=== PATIENT | male | born 1995 | race Caucasian/White ===

== ENCOUNTER 2019-09-15 15:17 | Emergency (ER) | payer MEDICAID ==
[~2019-09-15] VITALS: Ht 170.2 cm; Wt 59.0 kg
[2019-09-15 15:20] VITALS: BP_SYST 126
[2019-09-15] MEDS ORDERED: MECLIZINE HCL 25 MG TABLET (ANITVERT) PO ONE (16:45)
[2019-09-15 16:55] VITALS: BP_SYST 131
== END 2019-09-15 19:00 | disposition home or self-care (01) ==
LOC: SED 15:17
DX: T70.0XXA Otitic barotrauma, initial encounter (principal); X58.XXXA Exposure to other specified factors, initial encounter
CPT/HCPCS: 99283; J8597